=== PATIENT | female | born 1980 | race Caucasian/White ===

== ENCOUNTER → 2016-11-05 | Outpatient (CLI) | payer OTHER ==
[2016-11-05 11:33] VITALS: BP 110/75; PULSE 70; RESP 18; TEMP 98; BMI 45.8
[2016-11-05 12:33] LABS: CH 31.9; CHCM 35.2; HDW 2.68; HGB 14.8 gm/dL (11.4-16.0); MCH 31.3 pg (25.0-35.0); MCHC 34.4 g/dL (31.0-37.0); Mean Platelet Volume 7.1; RBC 4.73 m/uL (3.80-5.40); WBC 5.8 k/uL (3.8-10.6)
[2016-11-05 12:43] LABS: Partial Thromboplastin Time 26.6 sec (22.0-30.0); Prothrombin Time 10.4 sec (9.0-12.0)
[2016-11-05 12:48] LABS: Hemoglobin A1C 5.1 % (4.2-6.1)
[2016-11-05 13:02] LABS: ALT 40 U/L (9-52); AST 19 U/L (14-36); Alkaline Phosphatase 59 U/L (38-126); Anion Gap 9 mmol/L; Blood Urea Nitrogen 8 mg/dL (7-17); Calcium 9.2 mg/dL (8.4-10.2); Carbon Dioxide 27 mmol/L (22-30); Chloride 105 mmol/L (98-107); Cholesterol 152 mg/dL (<200); Glucose 79 mg/dL (74-99); HDL Cholesterol 42 mg/dL (40-60); Iron 93 ug/dL (37-170); Non-African American GFR(MDRD) >60 (>60 ml/min/1.73 sqM); Phosphorous 3.4 mg/dL (2.5-4.5); Potassium 4.3 mmol/L (3.5-5.1); Sodium 141 mmol/L (137-145); Total Bilirubin 0.8 mg/dL (0.2-1.3); Total Protein 6.3 g/dL (6.3-8.2); Triglycerides 104 mg/dL (<150)
[2016-11-05 13:15] LABS: % Iron Saturation 30.5 % (20-50); Prealbumin 19 mg/dL (18-36); Total Iron Binding Capacity 305 ug/dL (265-497)
[2016-11-05 14:06] LABS: Vitamin B12 362 pg/mL (239-931)
[2016-11-07 22:19] LABS: Selenium 83 mcg/L (63-160)
--- NOTE | 2016-11-15 14:40 | P.PN ---
Progress Note - Text DATE OF SERVICE: 11/05/2016 CHIEF COMPLAINT: Followup gastric bypass. HISTORY OF PRESENT ILLNESS: Karen Yoo is a 35-year-old female who is status post Deepika-en-Y gastric bypass as of April 13, 2016. She now presents almost 6 months out. Her highest weight was 392 pounds for her 5-foot 6-inch frame. Her ideal body weight is 154 pounds. Today she comes in weighing 283 pounds. She has already lost 109 pounds. Percent excess weight loss is 46%. Body mass index has been reduced from 63.4 to 45.8. Body mass index points are down by 18. She is still 129 pounds overweight. No reports of diabetes, as now this is resolved. She denies any gastroesophageal reflux disease. Initially she did have gastrojejunal ulcers with a recurrent stricture which has spontaneously now resolved. She denies any dysphagia. Her personal goal is to lose more weight. She does have a history of panniculitis, including requiring prescription treatment for her pannus. She is maintaining at least 60 grams of protein. Now she presents for further evaluation and management. PAST MEDICAL HISTORY: 1. Super morbid obesity. 2. Gastroesophageal reflux disease. 3. Obstructive sleep apnea. 4. Diabetes type 2. 5. Osteoarthritis of the left ankle secondary to morbid obesity. 6. Osteoarthritis of the lower back. 7. Depression. 8. Asthma. PAST SURGICAL HISTORY: 1. Adenoidectomy. 2. Tonsillectomy. 3. C-sections. 4. Upper endoscopy. 5. Status post Deepika-en-Y gastric bypass. 6. Upper endoscopy with balloon dilatation. MEDICATIONS: 1. Nexplanon. 2. Tylenol. 3. Omeprazole. 4. Vitamin A. 5. Multivitamin. ALLERGIES: 1. CLINDAMYCIN. 2. LEVOFLOXACIN. 3. PENICILLIN. 4. PAPER TAPE. SOCIAL HISTORY: Active tobacco user. FAMILY HISTORY: Pertinent for no gallbladder disease. No reports of blood clots, food allergies, Crohn's or ulcerative colitis in her family. REVIEW OF SYSTEMS: CONSTITUTIONAL: Highest weight was 392 pounds for her 5-foot 6-inch frame. Her ideal body weight is 154 pounds. Initial body mass index was 63.4. Present body mass index is down to 45.8. She has actually lost 109 pounds in the past 6+ months. Percent excess weight loss is 46%. ENDOCRINE: Resolved diabetes, type 2. No reports of thyroid disorders at present. GASTROINTESTINAL: No reports of dumping syndrome. Gastroesophageal reflux disease has now resolved. She denies any dysphagia to foods. PSYCH: History of depression, now resolved. She has been discontinued over Cymbalta. RESPIRATORY: History of asthma. She has completed evaluation for obstructive sleep apnea. HEENT: No troubles with vision or hearing. CARDIOVASCULAR: No reports of chest pain or heart attack. MUSCULOSKELETAL: Has osteoarthritis of the lower back including the left ankle. NEURO: No reports of stroke or seizure disorder. She is currently being evaluated for multiple sclerosis, however. HEMATOLOGIC: No reports of DVTs or thalassemia. PHYSICAL EXAM: VITAL SIGNS: 98.0, 70, 18, 110/75, 5 feet 6 inches, 283 pounds. Body mass index 45.8. ABDOMEN: Soft, nontender. No palpable incisional hernias. MUSCULOSKELETAL: No clubbing, cyanosis or edema. GENERAL: Well-developed female no acute distress. HEENT: No scleral icterus. Extraocular movements grossly intact. Moist buccal mucosa. NECK: Supple without lymphadenopathy. CHEST: Nonlabored respirations with equal bilateral excursions. CARDIOVASCULAR: Regular rate and rhythm. NEURO: No focal or lateralizing signs. Cranial nerves 2 through 12 grossly within normal limits. PSYCH: Appropriate affect. Alert and oriented to person, place, and time. LABS: Previous bariatric metabolic panel was reviewed with current pending at this time. ASSESSMENT: 1. Morbid obesity due to excess calories. 2. Body mass index reduced from 63.4 to 45.8. 3. Status post Deepika-en-Y gastric bypass. 4. Diabetes, type 2, resolved. 5. Panniculitis. 6. Gastroesophageal reflux disease, resolved. 7. Gastrojejunal stricture, resolved. 8. Dietary surveillance and counseling. 9. Gastroesophageal reflux disease, resolved. 10. Hypertensive heart disease, resolved. 11. Obstructive sleep apnea, resolved. 12. Osteoarthritis of the lower back secondary to morbid obesity, improved. 13. Osteoarthritis of the left ankle secondary to morbid obesity, improved. 14. Depression without psychosis. PLAN: 1. Recommend bariatric metabolic panel. 2. She does have history of panniculitis, for which nystatin powder has been written on her behalf. 3. She has done extremely well, already achieving almost 50% excess weight loss in 6 months. Dietary surveillance and counseling were described, whereby goal protein intake of over 75 grams daily was advised. 4. Upon her previous chemistries she had vitamin A deficiency, including suppressed TSH level, questionable for hyperthyroidism. Will re-evaluate her labs. 5. Recommend followup in approximately 4 weeks. ADDENDUM: Bariatric metabolic panel was reviewed, demonstrating no deficiencies or abnormalities.
== END | disposition home or self-care (01) ==
LOC: BARWHC3 10:34
PROVIDERS: ATTEND Surgery Plastic and Reconstructive Surgery
DX: E66.01 Morbid (severe) obesity due to excess calories (principal); E21.1 Secondary hyperparathyroidism, not elsewhere classified; E89.1 Postprocedural hypoinsulinemia; E50.8 Other manifestations of vitamin A deficiency; E44.0 Moderate protein-calorie malnutrition; E55.9 Vitamin D deficiency, unspecified; K74.1 Hepatic sclerosis; N19 Unspecified kidney failure; F32.9 Major depressive disorder, single episode, unspecified; K50.90 Crohn's disease, unspecified, without complications; M79.3 Panniculitis, unspecified; M47.9 Spondylosis, unspecified; M19.072 Primary osteoarthritis, left ankle and foot; F17.200 Nicotine dependence, unspecified, uncomplicated; Z71.3 Dietary counseling and surveillance; Z88.1 Allergy status to other antibiotic agents; Z88.0 Allergy status to penicillin; Z68.42 Body mass index [BMI] 45.0-49.9, adult; Z51.89 Encounter for other specified aftercare; Z98.84 Bariatric surgery status; Z91.048 Other nonmedicinal substance allergy status; Z79.899 Other long term (current) drug therapy
CPT/HCPCS: 84255; 84134; 84425; 80061; 80053; 82607; 82728; 83036; 82525; 82746; 83540; 83550; 83735; 84100; 84443; 84590; 84630; 85027; 85610; 85730; 82306; 83970; 97803; G0463; 99211

== ENCOUNTER 2017-01-26 02:51 | Inpatient (IN) | payer OTHER ==
--- NOTE | 2017-01-26 02:55 | ED ---
General Adult HPI - General Stated complaint: Adominal Pain Time Seen by Provider: 01/26/17 02:51 Source: RN notes reviewed - History of Present Illness Initial comments: This is a 36-year-old female who presents to the emergency department from [facility]. Patient had gastric bypass surgery last April. Patient states last night about 5:00 she started having some epigastric abdominal pain is started having dry heaves. Patient went [facility] where they determined she had small bowel instruction. ER contacted Dr. Tim Dumont told the emergency department to transfer the patient to our ER. Patient at this point time is gotten pain medicine and nausea medicine and she is not having any nausea and she states the pain is under control. Patient denies any recent fevers or chills. Patient denies any previous history of small bowel obstruction. Patient denies any chest pain patient denies shortness of breath or difficulty breathing. - Related Data Home Medications Medication Instructions Recorded Confirmed Ergocalciferol (Vitamin D2) 50,000 unit PO WEEKLY 01/26/17 01/26/17 [Vitamin D2] Multivitamins, Thera [Multivitamin 1 tab PO DAILY 01/26/17 01/26/17 (formulary)] Vitamin B Complex 1 each PO DAILY 01/26/17 01/26/17 Previous Rx's Medication Instructions Recorded Vitamin A 8,000 unit PO DAILY #30 capsule 06/24/16 Allergies Allergy/AdvReac Type Severity Reaction Status Date / Time clindamycin Allergy Rash/Hives/ Verified 01/26/17 02:58 RED FACE levofloxacin [From Levaquin] Allergy Anaphylaxis Verified 01/26/17 02:58 Penicillins Allergy Anaphylaxis Verified 01/26/17 02:58 paper tape Allergy rash and Uncoded 01/26/17 02:58 tears skin Review of Systems ROS Statement: Those systems with pertinent positive or pertinent negative responses have been documented in the HPI. ROS Other: All systems not noted in ROS Statement are negative. Past Medical History Past Medical History: Asthma, GERD/Reflux, Sleep Apnea/CPAP/BIPAP Additional Past Medical History / Comment(s): CURRENT: COMPLICATIONS POST GASTRIC BYPASS, UNABLE TO KEEP FOOD DOWN. Possible MS, pain when eating History of Any Multi-Drug Resistant Organisms: None Reported Past Surgical History: Adenoidectomy, Bariatric Surgery, Section, Tonsillectomy, Ventriculoperitoneal Shunt Additional Past Surgical History / Comment(s): 04/13/16: MAYLIN-EN-Y GASTRIC BYPASS. , EGD 06/10/16 Past Anesthesia/Blood Transfusion Reactions: No Reported Reaction Additional Past Anesthesia/Blood Transfusion Reaction / Comment(s): no hx blood transfusion Past Psychological History: Anxiety, Depression Smoking Status: Never smoker Past Alcohol Use History: Rare Additional Past Alcohol Use History / Comment(s): QUIT SMOKING 07/2015 Past Drug Use History: Marijuana Additional Drug Use History / Comment(s): SMOKES COUPLE TIMES A WEEK, INSTRUCTED NOT TO USE 24 HRS PRIOR TO PROCEDURE - Past Family History Father History Unknown: Yes Family Medical History: No Reported History Mother Family Medical History: No Reported History General Exam - General Exam Comments Initial Comments: GENERAL: Patient is well-developed and well-nourished. Patient is nontoxic and well- hydrated and is in mild distress. ENT: Neck is soft and supple. No significant lymphadenopathy is noted. Oropharynx is clear. Moist mucous membranes. Neck has full range of motion without eliciting any pain. EYES: The sclera were anicteric and conjunctiva were pink and moist. Extraocular movements were intact and pupils were equal round and reactive to light. Eyelids were unremarkable. PULMONARY: Unlabored respirations. Good breath sounds bilaterally. No audible rales rhonchi or wheezing was noted. CARDIOVASCULAR: There is a regular rate and rhythm without any murmurs gallops or rubs. ABDOMEN: Mild epigastric tenderness. No palpable organomegaly was noted. There is no palpable pulsatile mass. SKIN: Skin is clear with no lesions or rashes and otherwise unremarkable. NEUROLOGIC: Patient is alert and oriented x3. Cranial nerves II through XII are grossly intact. Motor and sensory are also intact. Normal speech, volume and content. Symmetrical smile. MUSCULOSKELETAL: Normal extremities with adequate strength and full range of motion. LYMPHATICS: No significant lymphadenopathy is noted PSYCHIATRIC: Normal psychiatric evaluation. Course Vital Signs 01/26/17 02:53 Temperature 98.4 F Pulse Rate 62 Respiratory 20 Rate Blood Pressure 133/58 O2 Sat by Pulse 97 Oximetry Medical Decision Making - Medical Decision Making I spoke with Dr. Kaufman he stated that I should admit the patient to Dr. Rodolfo pavon and he would see the patient in the morning I spoke with Dr. Racheal Reynolds Jason she accepted the patient and and I wrote admitting orders. - Lab Data Result diagrams: 01/26/17 03:16 Lab Results 01/26/17 Range/Units 03:16 WBC 8.6 (3.8-10.6) k/uL RBC 4.44 (3.80-5.40) m/uL Hgb 14.0 (11.4-16.0) gm/dL Hct 41.4 (34.0-46.0) % MCV 93.4 (80.0-100.0) fL MCH 31.5 (25.0-35.0) pg MCHC 33.8 (31.0-37.0) g/dL RDW 13.2 (11.5-15.5) % Plt Count 212 (150-450) k/uL Neutrophils % 78 % Lymphocytes % 16 % Monocytes % 4 % Eosinophils % 1 % Basophils % 0 % Neutrophils # 6.6 (1.3-7.7) k/uL Lymphocytes # 1.4 (1.0-4.8) k/uL Monocytes # 0.3 (0-1.0) k/uL Eosinophils # 0.1 (0-0.7) k/uL Basophils # 0.0 (0-0.2) k/uL Disposition Clinical Impression: Small bowel obstruction Disposition: ADMITTED IP TO THIS HOSP Referrals: Jose Buchanan MD [Primary Care Provider] - 1-2 days Time of Disposition: 03:10
[2017-01-26] MEDS ORDERED: SODIUM CHLORIDE 0.9% 1,000 ML IV ONE (03:10)
[2017-01-26] MEDS ORDERED: ONDANSETRON 4 MG/2 ML VIAL IVP PRN (03:14)
[2017-01-26 03:32] LABS: Basophils % (A) 0 %; CH 32.2; CHCM 34.6; Eosinophils # (A) 0.1 k/uL (0-0.7); Eosinophils % (A) 1 %; HCT 41.4 % (34.0-46.0); HDW 2.54; Luc % (Auto) 1; Lymphocytes # (A) 1.4 k/uL (1.0-4.8); Lymphocytes % (A) 16 %; MCH 31.5 pg (25.0-35.0); MCHC 33.8 g/dL (31.0-37.0); MCV 93.4 fL (80.0-100.0); Mean Platelet Volume 6.9; Monocytes # (A) 0.3 k/uL (0-1.0); Monocytes % (A) 4 %; Neutrophils # (A) 6.6 k/uL (1.3-7.7); Neutrophils % (A) 78 %; RBC 4.44 m/uL (3.80-5.40); RDW 13.2 % (11.5-15.5); WBC 8.6 k/uL (3.8-10.6); WBC (Perox) 8.73
--- NOTE | 2017-01-26 04:21 | XR ---
EXAM: XR Abdomen, 1 View. CLINICAL HISTORY: Reason: Pain TECHNIQUE: Frontal supine view of the abdomen/pelvis. COMPARISON: No relevant prior studies available. FINDINGS: Gastrointestinal tract: Distended air-filled bowel loop in left upper abdomen with air-fluid levels. Bones/joints: No acute fracture. Other findings: No evidence of free air. IMPRESSION: Distended air-filled bowel loop in left upper abdomen with air-fluid levels. Differential considerations include enteritis, obstruction, or ileus.
[2017-01-26] MEDS: HYDROmorphone 1 MG/ML 1 ML SYRINGE IVP PRN ×4 (05:08→20:30)
[2017-01-26 10:21] VITALS: BMI 42.6
--- NOTE | 2017-01-26 11:35 | XR ---
EXAMINATION TYPE: XR abdomen 1V DATE OF EXAM: 01/26/2017 11:00 AM COMPARISON: 01/26/2017 HISTORY: Severe pain TECHNIQUE: One view abdominal series FINDINGS: The osseous structures are intact. The bowel gas pattern is nonspecific. Few prominent small bowel l oops are seen. Slight curvature of the spine with mild degenerative changes seen. Hypertrophic change of the acetabulum noted. IMPRESSION: 1. Nonspecific abdomen. There is interval reduction in the degree of dilation of the bowel loops sug gestive of significant improvement from the previous exam. There is some residual small bowel dilatio n and air-fluid level within the mid and left abdomen. Partial obstruction remains within the differe ntial diagnosis.
--- NOTE | 2017-01-26 12:22 | P.GSHP ---
History of Present Illness H&P Date: 01/26/17 Chief Complaint: Nausea,vomiting and abdominal pain Patient is a 40-year-old female who had a gastric bypass for morbid obesity with diabetes mellitus approximately 9 months ago. Patient distended with sudden onset of severe mid abdominal pain associated with retching dry heaving and nausea vomiting. She was not passing a lot of gas. She was initially seen at [facility] and transferred to [facility]. Her pain was epigastric radiating towards the back. There was moderate to severe improved with pain medication and made worse by her heaving and vomiting. She's not had a bowel movement in 24 hours. Since she's been initially been passing more gas. Her pain is improved. She's been ambulating well. Without any problems. - Constitutional Constitutional: Reports anorexia, Reports poor appetite - EENT Eyes: denies blurred vision, denies pain Ears, nose, mouth and throat: Denies headache, Denies sore throat - Cardiovascular Cardiovascular: Denies chest pain, Denies shortness of breath - Respiratory Respiratory: Denies cough, Denies 7 - Gastrointestinal Gastrointestinal: Reports as per HPI - Genitourinary (Female) Genitourinary: Denies dysuria, Denies hematuria - Musculoskeletal Musculoskeletal: Denies myalgias - Integumentary Integumentary: Denies pruritus, Denies rash - Neurological Neurological: Denies numbness, Denies weakness - Psychiatric Psychiatric: Denies anxiety, Denies depression Past Medical History Past Medical History: Asthma, GERD/Reflux, Sleep Apnea/CPAP/BIPAP Additional Past Medical History / Comment(s): CURRENT: COMPLICATIONS POST GASTRIC BYPASS, UNABLE TO KEEP FOOD DOWN. Possible MS, pain when eating History of Any Multi-Drug Resistant Organisms: None Reported Past Surgical History: Adenoidectomy, Bariatric Surgery, Section, Tonsillectomy, Ventriculoperitoneal Shunt Additional Past Surgical History / Comment(s): 04/13/16: MAYLIN-EN-Y GASTRIC BYPASS. , EGD 06/10/16 Past Anesthesia/Blood Transfusion Reactions: No Reported Reaction Additional Past Anesthesia/Blood Transfusion Reaction / Comment(s): no hx blood transfusion Past Psychological History: Anxiety, Depression Smoking Status: Never smoker Past Alcohol Use History: Rare Additional Past Alcohol Use History / Comment(s): QUIT SMOKING 07/2015 Past Drug Use History: Marijuana Additional Drug Use History / Comment(s): SMOKES COUPLE TIMES A WEEK, INSTRUCTED NOT TO USE 24 HRS PRIOR TO PROCEDURE - Past Family History Father History Unknown: Yes Family Medical History: No Reported History Mother Family Medical History: No Reported History Medications and Allergies Home Medications Medication Instructions Recorded Confirmed Type Ergocalciferol (Vitamin D2) 50,000 unit PO MO 01/26/17 01/26/17 History [Vitamin D2] Multivitamins, Thera [Multivitamin 1 tab PO DAILY 01/26/17 01/26/17 History (formulary)] Thiamine [Vitamin B-1] 100 mg PO DAILY 01/26/17 01/26/17 History Allergies Allergy/AdvReac Type Severity Reaction Status Date / Time levofloxacin [From Levaquin] Allergy Severe Anaphylaxis Verified 01/26/17 08:02 clindamycin Allergy Rash/Hives/ Verified 01/26/17 08:02 RED FACE Penicillins Allergy Anaphylaxis Verified 01/26/17 08:02 paper tape Allergy rash and Uncoded 01/26/17 02:58 tears skin Surgical - Exam Vital Signs Temp Pulse Resp BP Pulse Ox 98.4 F 62 20 133/58 97 01/26/17 02:53 01/26/17 02:53 01/26/17 02:53 01/26/17 02:53 01/26/17 02:53 - General well developed, well nourished, no pain - Eyes PERRL, normal ocular movement, no pale, no icteric, no deviation - ENT no hearing loss, no congestion - Neck no masses, trachea midline - Respiratory normal expansion, normal respiratory effort - Cardiovascular Rhythm: regular - Abdomen She was initially examined at 8:30 this morning. At that time. She was complaining of abdominal tenderness primarily epigastric without any guarding or rebound. Interval exam done at 12 known reveals a soft abdomen without any guarding rebound or tenderness. Mildly distended without any mass or organomegaly. Scars from previous surgery are seen. Bowel sounds are hypoactive. - Integumentary no rash, no abnormal pigmentation Results - Labs 01/26/17 03:16 - Imaging Abdominal x-ray: report reviewed, image reviewed (She was seen and examined. The computed tomography scan revealed dilated small bowel with fecal equalization probable obstruction at 2 points with distal and proximal collapse of the bowel. Initial abdominal x-ray showed dilated loops of bowel consistent with bowel obstruction. The second abdominal x-ray revealed resolution with decreased number of dilated loops of bowel) CT scan - abdomen: report reviewed, image reviewed Assessment and Plan (1) Small bowel obstruction Status: Acute (2) Morbid obesity Status: Acute Plan: Patient is a 36-year-old female with a history of gastric bypass for previous history of diabetes mellitus with complications including's for sleep apnea. She is on well with 130 pound weight loss. She presented with sudden onset of severe abdominal pain with bowel obstruction and was admitted to the floor. She has not had an NG tube. Since her admission her nausea and vomiting have reduced as well as abdominal pain. Clinically abdominal exam is improved which was tender initially but is not as tender. His white count has remained normal without any left shift. Plasma lactate is normal. Serial abdominal x-ray shows significant improvement. Due to the continuing improvement of the patient at this time I elected to manage this patient conservatively. She is okay to have ice chips per Dr. Adams. She will be evaluated by Dr. Adams later tonight. No surgical intervention is planned at this point.
[2017-01-26] MEDS ORDERED: RX INFO: IV CONTRAST WAS GIVEN 1 EACH MISC MISCELLANE PRN (18:14)
[2017-01-26] MEDS ORDERED: IOHEXOL 350 MG/ML 25 ML BOTTLE (ORAL USE) PO PRN (18:14)
--- NOTE | 2017-01-26 18:22 | P.PN ---
Subjective Principal diagnosis: Bowel obstruction Patient is a [id number]-year-old female well-known to me who was over 9 months out from Deepika-en-Y gastric bypass. She reports epigastric and periumbilical pain. Abdominal x-rays had shown moderate improvement of her initial bowel obstruction. She is passing flatus. She reports mild abdominal soreness however moderate improvement of her abdominal pain since admission. She is requesting liquids. She denies any vomiting at this time. Objective - Vital Signs Vital signs: Vital Signs Temp 97.3 F L 01/26/17 14:15 Pulse 53 L 01/26/17 14:15 Resp 16 01/26/17 14:15 BP 95/55 01/26/17 14:15 Pulse Ox 98 01/26/17 14:15 Intake & Output 01/25/17 01/26/17 01/26/17 18:59 06:59 18:59 Intake Total 100 800 Balance 100 800 Weight 119.748 kg Intake: IV 100 800 Sodium Chloride 0.9% 1, 100 800 000 ml @ 100 mls/hr IV . Q10H ONE Rx#:[id number] Other: Voiding Method Toilet - Exam GENERAL: Well developed and in no acute distress. Pleasant. HEENT: No sclera icterus. Extraocular movements grossly intact. Moist buccal mucosa. Head is atraumatic, normocephalic. Hears conversational speech. No nasal drainage. NECK: Supple without lymphadenopathy. No JV distention. CHEST: Non-labored respirations and equal bilateral excursions. CARDIOVASCULAR: Regular rate and rhythm. Palpable 2+ radial pulses. ABDOMEN: Well-healed transverse incisions. No palpable large incisional hernias. No peritonitis. Nondistended. Minimal tenderness to deep palpation along the epigastrium. MUSCULOSKELETAL: No clubbing, cyanosis or edema. NEUROLOGIC: No focal or lateralizing signs. PSYCH: Appropriate affect. Alert and oriented to person, place and time. - Labs CBC & Chem 7: 01/26/17 03:16 Labs: Abnormal Lab Results - Last 24 Hours (Table) 01/26/17 Range/Units 09:39 Plasma Lactic Acid Gianni 0.6 L (0.7-2.0) mmol/L Assessment and Plan (1) Bariatric surgery status Status: Acute (2) Small bowel obstruction Status: Acute (3) Morbid obesity Status: Acute (4) Epigastric abdominal pain Status: Acute Plan: 1. She had initial CT done at [facility] however without contrast and very limited study. Recommend CT of the abdomen and pelvis with both oral and IV contrast to elucidate intussusception versus internal hernia versus volvulus. 2. She has clinically improved however a diagnostic laparoscopy has not been completely excluded. 3. Continue with IV fluid hydration. 4. Liquid diet at this time following computed tomography scan. 5. Agree with full inpatient hospitalization given severity of presentation. 6. Repeat full chemistries including magnesium, phosphorus, lactic acid.
--- NOTE | 2017-01-26 19:21 | CT ---
EXAMINATION TYPE: CT abdomen pelvis w con DATE OF EXAM: 01/26/2017 7:14 PM COMPARISON: 01/26/2017 from an outside institution. HISTORY: Mid abdominal pain. CT DLP: 1957.70 mGycm CONTRAST: CT scan of the abdomen and pelvis is performed with Oral Contrast and with IV Contrast, patient injec clarissa with 100 mL of Omnipaque 300. FINDINGS: LUNG BASES-: No visible nodule. No infiltrate. LIVER/GB: No calcified gallstones. No space occupying hepatic lesion. Biliary tree is of normal ca liber. There is mild hepatic steatosis. PANCREAS: No inflammation. No distinct mass. SPLEEN: No splenic enlargement. No lesion seen. ADRENALS: No nodule. No thickening. KIDNEYS/BLADDER: No hydronephrosis. No nephrolithiasis. No disctinct renal mass. Urinary bladder g rossly unremarkable. BOWEL: There is evidence of gastric bypass procedure. No evidence for obstruction or leak. No abnorma l collections identified. Several the proximal small bowel loops demonstrate mild wall thickening whi ch may reflect enteritis. Normal appendix. Normal bowel caliber. GENITAL ORGANS: The uterus and ovaries are unremarkable. Free fluid is seen within the cul-de-sac. LYMPH NODES: No greater than 1cm abdominal or pelvic lymph nodes are appreciated. AORTA: No significant abnormality. OSSEOUS STRUCTURES: No significant abnormality is seen. OTHER: No significant additional abnormality is seen. IMPRESSION: 1. Postoperative changes of gastric bypass procedure without evidence for leak or obstruction. 2. Proximal jejunal loops demonstrate mild wall thickening which may reflect enteritis. 3. Fatty liver. 4. Free fluid within the cul-de-sac.
--- NOTE | 2017-01-26 19:44 | P.PN ---
Progress Note - Text CT of the abdomen pelvis reviewed. Findings are consistent with gastroenteritis. No evidence of bowel obstruction identified.
[2017-01-27] MEDS: HYDROmorphone 1 MG/ML 1 ML SYRINGE IVP PRN ×3 (06:08→20:45)
[2017-01-27 08:33] LABS: Basophils % (A) 1 %; CH 32.1; CHCM 34.6; Eosinophils # (A) 0.1 k/uL (0-0.7); Eosinophils % (A) 2 %; HDW 2.67; HGB 13.5 gm/dL (11.4-16.0); Luc % (Auto) 2; Lymphocytes # (A) 1.7 k/uL (1.0-4.8); Lymphocytes % (A) 35 %; MCH 33.2 pg (25.0-35.0); MCHC 35.6 g/dL (31.0-37.0); MCV 93.3 fL (80.0-100.0); Mean Platelet Volume 7.4; Monocytes # (A) 0.3 k/uL (0-1.0); Monocytes % (A) 6 %; Neutrophils # (A) 2.5 k/uL (1.3-7.7); Neutrophils % (A) 54 %; RBC 4.07 m/uL (3.80-5.40); WBC 4.7 k/uL (3.8-10.6); WBC (Perox) 4.99
[2017-01-27 08:40] LABS: ALT 25 U/L (9-52); AST 11 U/L (14-36); Alkaline Phosphatase 50 U/L (38-126); Anion Gap 6 mmol/L; Blood Urea Nitrogen 6 mg/dL (7-17); Calcium 8.8 mg/dL (8.4-10.2); Carbon Dioxide 27 mmol/L (22-30); Chloride 107 mmol/L (98-107); Glucose 94 mg/dL (74-99); Magnesium 1.9 mg/dL (1.6-2.3); Non-African American GFR(MDRD) >60 (>60 ml/min/1.73 sqM); Phosphorous 4.1 mg/dL (2.5-4.5); Potassium 4.1 mmol/L (3.5-5.1); Sodium 140 mmol/L (137-145); Total Bilirubin 0.8 mg/dL (0.2-1.3); Total Protein 5.4 g/dL (6.3-8.2)
[2017-01-27] MEDS ORDERED: NALOXONE 0.4 MG/ML 1 ML VIAL IV PRN (19:20)
--- NOTE | 2017-01-27 19:20 | P.PN ---
Subjective Principal diagnosis: Bowel obstruction Patient is a [id number]-year-old female who presented with acute onset epigastric abdominal pain. Abdominal x-ray including CT of abdomen pelvis was negative for acute obstruction however today she still reports persistent abdominal pain. She is passing flatus. Her mother is at bedside. She says the pain comes in waves. Objective - Vital Signs Vital signs: Vital Signs Temp 98.6 F 01/27/17 14:04 Pulse 60 01/27/17 14:04 Resp 16 01/27/17 14:04 BP 138/86 01/27/17 14:04 Pulse Ox 97 01/27/17 14:04 Intake & Output 01/27/17 01/27/17 01/28/17 06:59 18:59 06:59 Intake Total 1200 Balance 1200 Intake: IV 1200 Sodium Chloride 0.9% 1, 1200 000 ml @ 100 mls/hr IV . Q10H ONE Rx#:[id number] Other: Voiding Method Toilet # Voids 2 - Exam GENERAL: Well developed and in no acute distress. Pleasant. HEENT: No sclera icterus. Extraocular movements grossly intact. Moist buccal mucosa. Head is atraumatic, normocephalic. Hears conversational speech. No nasal drainage. NECK: Supple without lymphadenopathy. No JV distention. CHEST: Non-labored respirations and equal bilateral excursions. CARDIOVASCULAR: Regular rate and rhythm. Palpable 2+ radial pulses. ABDOMEN: Well-healed transverse incisions. No palpable large incisional hernias. No peritonitis. Tenderness along the epigastrium. MUSCULOSKELETAL: No clubbing, cyanosis or edema. NEUROLOGIC: No focal or lateralizing signs. PSYCH: Appropriate affect. Alert and oriented to person, place and time. - Labs CBC & Chem 7: 01/27/17 08:12 01/27/17 08:12 Labs: Abnormal Lab Results - Last 24 Hours (Table) 01/27/17 Range/Units 08:12 BUN 6 L (7-17) mg/dL AST 11 L (14-36) U/L Total Protein 5.4 L (6.3-8.2) g/dL Albumin 3.0 L (3.5-5.0) g/dL Assessment and Plan (1) Bariatric surgery status Status: Acute (2) Small bowel obstruction Status: Acute (3) Morbid obesity Status: Acute (4) Epigastric abdominal pain Status: Acute Plan: 1. Although her computed tomography scan imaging had showed improvement, her abdominal pain has now become worse. With her history of a gastric bypass, an internal hernia, volvulus, intussusception cannot be excluded. I discussed benefits and risks of diagnostic laparoscopy which she is agreed to proceed. 2. DVT prophylaxis. 3. Nothing by mouth after midnight.
[2017-01-27] MEDS: SODIUM CHLORIDE 0.9% 1,000 ML IV SCH (20:50)
[2017-01-28] MEDS: HYDROmorphone 1 MG/ML 1 ML SYRINGE IVP PRN ×5 (00:34→23:25)
[2017-01-28] MEDS: SODIUM CHLORIDE 0.9% 1,000 ML IV SCH ×2 (04:22→20:31)
[2017-01-28] MEDS: ENOXAPARIN 40 MG/0.4 ML SYRINGE SQ SCH ×2 (08:23→13:30)
[2017-01-28] MEDS: PANTOPRAZOLE 40 MG/10 ML VIAL IV SCH (09:02)
[2017-01-28 11:37] LABS: % Iron Saturation 13.4 % (20-50)
[2017-01-28] MEDS ORDERED: VANCOMYCIN 1,500 MG in SODIUM CHLORIDE 0.9% 250 ML IVPB ONE (13:00)
[2017-01-28] MEDS ORDERED: IV FLUID CONTINUATION 700 ML IV ONE (13:08)
[2017-01-28 13:10] LABS: Hemoglobin A1C 5.2 % (4.2-6.1)
[2017-01-28] MEDS ORDERED: ONDANSETRON 4 MG/2 ML VIAL IVP ONE (13:20)
[2017-01-28] MEDS ORDERED: DEXAMETHASONE SOD PHOSPHATE 10 MG/ML 1 ML VIAL IV ONE (13:21)
[2017-01-28] MEDS ORDERED: GLYCOPYRROLATE 0.2 MG/ML 2 ML VIAL ONE (14:15)
[2017-01-28] MEDS ORDERED: PROPOFOL 10 MG/ML 20 ML VIAL IV ONE (14:15)
[2017-01-28] MEDS ORDERED: VECURONIUM 10 MG VIAL IV ONE (14:15)
[2017-01-28] MEDS ORDERED: fentaNYL (PF) 50 MCG/ML 2 ML AMP ONE (14:15)
[2017-01-28] MEDS ORDERED: HYDROmorphone (PF) 1 MG/ML ONE (14:15)
[2017-01-28] MEDS ORDERED: LIDOCAINE 1% INJ 10MG/ML (20 ML MDV) ONE (14:15)
[2017-01-28] MEDS ORDERED: MIDAZOLAM 2 MG/2 ML VIAL ONE (14:15)
[2017-01-28] MEDS ORDERED: SUCCINYLCHOLINE CHLORIDE VIAL 200 MG/10 ML VIAL IV ONE (14:15)
[2017-01-28] MEDS ORDERED: NEOSTIGMINE 1 MG/ML 10 ML VIAL ONE (14:15)
[2017-01-28] MEDS ORDERED: ePHEDrine 50 MG/ML 1 ML AMP ONE (14:15)
[2017-01-28] MEDS ORDERED: BUPIVACAIN-EPI 0.25%-1:200,000 30 ML VIAL SQ ONE (14:57)
[2017-01-28] MEDS ORDERED: LACTATED RINGERS 1,000 ML IV ONE (14:57)
[2017-01-28] MEDS ORDERED: HYDROmorphone 1 MG/ML 1 ML SYRINGE IVP ONE ×2 (16:15→16:21)
--- NOTE | 2017-01-28 16:15 | P.PCN ---
Date of Procedure: 01/28/17 Preoperative Diagnosis: Small bowel obstruction, history of epigastric abdominal pain, history of gastric bypass Postoperative Diagnosis: Same, adhesive band disease along the epigastrium causing small bowel volvulus along adhesive band Procedure(s) Performed: Laparoscopic lysis of adhesions over 1 hour, closure of the jejunojejunostomy mesenteric defect Anesthesia: BRIAN, local Surgeon: Dixie Chew Estimated Blood Loss (ml): 5 Pathology: none sent Condition: stable Disposition: floor Operative Findings: Adhesive band along epigastrium to the abdominal wall involving her liliam limb and common channel. No small bowel ischemia.
[2017-01-28] MEDS ORDERED: MEPERIDINE 50 MG/ML SYRINGE IVP ONE ×2 (16:26→16:32)
[2017-01-28 16:40] VITALS: RESP 16
[2017-01-28] MEDS: SODIUM FERRIC GLUCONAT-SUCROSE 125 MG in SODIUM CHLORIDE 0.9% 100 ML IVPB SCH (17:26)
--- NOTE | 2017-01-28 18:12 | P.PN ---
Subjective Principal diagnosis: Bowel obstruction The patient is status post laparoscopic lysis of adhesions. Her epigastric abdominal pain is completely resolved. She's tolerating diet. She is receiving an iron infusion for iron deficiency anemia. Objective - Vital Signs Vital signs: Vital Signs Temp 97.3 F L 01/28/17 16:04 Pulse 71 01/28/17 16:34 Resp 16 01/28/17 16:34 BP 115/64 01/28/17 16:34 Pulse Ox 97 01/28/17 16:34 Intake & Output 01/27/17 01/28/17 01/28/17 18:59 06:59 18:59 Intake Total 1100 Output Total 205 Balance 895 Weight 119.748 kg Intake: IV 1100 Output: Urine 200 Estimated Blood Loss 5 Other: Voiding Method Toilet Toilet # Voids 2 - Exam GENERAL: Well developed and in no acute distress. Pleasant. HEENT: No sclera icterus. Extraocular movements grossly intact. Moist buccal mucosa. Head is atraumatic, normocephalic. Hears conversational speech. No nasal drainage. NECK: Supple without lymphadenopathy. No JV distention. CHEST: Non-labored respirations and equal bilateral excursions. CARDIOVASCULAR: Regular rate and rhythm. Palpable 2+ radial pulses. ABDOMEN: Incisions clean dry and intact. Dermabond intact. No signs of infection. MUSCULOSKELETAL: No clubbing, cyanosis or edema. NEUROLOGIC: No focal or lateralizing signs. PSYCH: Appropriate affect. Alert and oriented to person, place and time. - Labs CBC & Chem 7: 01/27/17 08:12 01/27/17 08:12 Labs: Abnormal Lab Results - Last 24 Hours (Table) 01/28/17 Range/Units 06:59 Iron 36 L (37-170) ug/dL % Saturation 13.4 L (20-50) % HDL Cholesterol 27 L (40-60) mg/dL Vitamin B12 215 L (239-931) pg/mL Assessment and Plan (1) Bariatric surgery status Status: Acute (2) Small bowel obstruction Status: Acute (3) Morbid obesity Status: Acute (4) Epigastric abdominal pain Status: Acute (5) Intestinal adhesions [bands] with obstruction (postprocedural) ( postinfection) Status: Acute (6) Iron deficiency anemia Status: Acute Plan: 1. She has done well postop. May be discharged home tomorrow. 2. Iron infusion 3. Follow up in the office in 3-5 days.
[2017-01-28] MEDS ORDERED: CYANOCOBALAMIN 1,000 MCG/ML 1 ML VIAL IM ONE (18:17)
--- NOTE | 2017-01-28 18:25 | P.DS ---
Providers Date of admission: 01/26/17 03:10 Expected date of discharge: 01/29/17 Attending physician: Vanessa Enciso Primary care physician: Jose Buchanan - Discharge Diagnosis(es) (1) Bariatric surgery status Current Visit: Yes Status: Acute (2) Small bowel obstruction Current Visit: Yes Status: Acute (3) Morbid obesity Current Visit: No Status: Acute (4) Epigastric abdominal pain Current Visit: Yes Status: Acute (5) Intestinal adhesions [bands] with obstruction (postprocedural) ( postinfection) Current Visit: Yes Status: Acute (6) Iron deficiency anemia Current Visit: Yes Status: Acute Hospital Course: The patient is a 36-year-old female who been transferred from [facility] to [facility] secondary to bowel obstruction. She has history of gastric bypass performed 9 months ago. She had CT of the abdomen and pelvis demonstrated no closed loop obstruction however her abdominal pain had progressed. She was taken to the operating room. Findings including intestinal adhesions and lysed. Postoperatively, her epigastric abdominal pain resolved. She was tolerating diet. Pertinent Studies: CT of the abdomen and pelvis demonstrating no free air. Procedures: Laparoscopic lysis of adhesions over 1 hour. Closure of jejunojejunostomy. Patient Condition at Discharge: Good Plan - Discharge Summary New Discharge Prescriptions: Cyanocobalamin [Vitamin B-12] 1,000 mcg PO DAILY@1200 #60 tablet Ferrous Sulfate [Feosol] 325 mg PO TID #90 tab Hydrocodone/Acetaminophen [[place] 5-325] 1 - 2 each PO Q6HR PRN #30 tab PRN Reason: Pain Discharge Medication List Vitamin A 8,000 unit PO DAILY #30 capsule 06/24/16 [Rx] Ergocalciferol (Vitamin D2) [Vitamin D2] 50,000 unit PO MO 01/26/17 [History] Multivitamins, Thera [Multivitamin (formulary)] 1 tab PO DAILY 01/26/17 [History ] Thiamine [Vitamin B-1] 100 mg PO DAILY 01/26/17 [History] Cyanocobalamin [Vitamin B-12] 1,000 mcg PO DAILY@1200 #60 tablet 01/28/17 [Rx] Ferrous Sulfate [Feosol] 325 mg PO TID #90 tab 01/28/17 [Rx] Hydrocodone/Acetaminophen [[place] 5-325] 1 - 2 each PO Q6HR PRN #30 tab 04/27/17 [Rx] Follow up Appointment(s)/Referral(s): Jose Buchanan MD [Primary Care Provider] - 1-2 days Dixie Chew MD [STAFF PHYSICIAN] - 02/02/17 (Please call to confirm time) Patient Instructions/Handouts: Bowel Obstruction (DC) Activity/Diet/Wound Care/Special Instructions: No lifting over 5 pounds in 2 weeks. May shower. No bath tub soaks. Discharge Disposition: HOME SELF-CARE
[2017-01-28] MEDS: HYDROcodone/APAP 5-325MG 1 EACH TAB PO PRN (22:50)
[2017-01-29] MEDS: SODIUM CHLORIDE 0.9% 1,000 ML IV SCH (03:24)
[2017-01-29] MEDS: HYDROcodone/APAP 5-325MG 1 EACH TAB PO PRN ×2 (04:22→09:09)
[2017-01-29 07:15] VITALS: BP 99/60; PULSE 54; TEMP 97.7
[2017-01-29] MEDS: ENOXAPARIN 40 MG/0.4 ML SYRINGE SQ SCH (07:19)
[2017-01-29] MEDS: PANTOPRAZOLE 40 MG/10 ML VIAL IV SCH (07:20)
[2017-01-29] MEDS: SODIUM FERRIC GLUCONAT-SUCROSE 125 MG in SODIUM CHLORIDE 0.9% 100 ML IVPB SCH (07:44)
--- NOTE | 2017-01-29 09:59 | OP ---
DATE OF SERVICE: 01/28/2017 SURGEON: MARYCRUZ LYONS MD RESIDENTIAL CHILD CARE COUNSELOR: NONE. PREOPERATIVE DIAGNOSES: 1. Acute onset epigastric abdominal pain. 2. History of small bowel obstruction. 3. Nausea and vomiting. 4. History of gastric bypass. 5. Morbid obesity due to excess calories. 6. Body mass index 42.6. 7. History of asthma. POSTOPERATIVE DIAGNOSES: 1. Acute onset epigastric abdominal pain. 2. History of small bowel obstruction. 3. Nausea and vomiting. 4. History of gastric bypass. 5. Morbid obesity due to excess calories. 6. Body mass index 42.6. 7. History of asthma. 8. Intestinal adhesions causing small bowel obstruction. 9. Iron deficiency anemia. 10. Internal hernia. OPERATION: 1. Diagnostic laparoscopy with extensive lysis of adhesions over hour. 2. Laparoscopic closure of internal hernias, jejunojejunostomy mesenteric defect. ANESTHESIA: General with 30 mL Marcaine with epinephrine. ESTIMATED BLOOD LOSS: 5 mL. SPECIMENS REMOVED: None. COMPLICATIONS: None. OPERATIVE FINDINGS: 1. Intestinal adhesive band disease found along the epigastrium as the cause of her abdominal pain. 2. Internal hernia caused by adhesive band disease completely lysed. 3. Closure of the jejunojejunostomy mesenteric defect. INDICATIONS: Karen Yoo is a 36-year-old female with previous history of Deepika-en-Y gastric bypass done over 9 months ago. She was doing well and then after eating her supper she developed acute onset epigastric abdominal pain. She was initially seen in [place] and then transferred to [facility] for further evaluation and management. She had been able to pass some flatus; however, despite eating, her abdominal pain had grown worse. Diagnostic images were obtained. With her history of gastric bypass, cause of her pain including internal hernia, volvulus as well as intussusception cannot be excluded. Diagnostic laparoscopy with surgical intervention, possible small bowel resection was described at length. Informed consent was obtained. DESCRIPTION OF PROCEDURE: Patient was brought to the operating room, laid in supine position. After general induction, the abdomen had been prepped and draped in standard sterile fashion. A Avila catheter also had been placed. Prior to incision, a timeout protocol was confirmed with surgical team regarding the patient's name including procedures to be performed. She also had preoperative antibiotics of vancomycin. Initial incision was made along her previous cicatrix along the epigastrium using a 5 mm 0-degree laparoscope. The abdomen was entered and insufflated to 15 mmHg pressure, which she tolerated well. Diagnostic laparoscopy demonstrated no injury to bowel, viscera or mesentery. Next a 5 mm trocar was placed along the right upper quadrant along her previous incision. Another 5 mm trocar was placed along the left lower quadrant followed by a 10 mm port along the left upper quadrant all under direct visualization. Immediately adhesions were found along the epigastrium consistent with her area of pain. A thick adhesive band actually incorporating the Deepika limb as well as the portion of her common channel was found twisted and causing a volvulus from the adhesive band. Along the lower aspect of the abdomen, the sigmoid colon was found to be moderately distended with air. No volvulus was identified, however. Initial attention was brought to the adhesive band along the epigastrium which addressed using blunt dissection of a dissecting grasper. The adhesive band was resected from the abdominal wall using a Sonicision. Next under careful inspection, an internal hernia was created by this adhesive band which was then lysed. The adhesions were subsequently freed. Next, attention was brought to the right lower quadrant whereby the small bowel was investigated in a retrograde fashion to the jejunojejunostomy. No further evidence of small bowel dilatation was identified or evidence of intussusception. The bowel was ran to the jejunojejunostomy. The patient was then placed in reverse Trendelenburg position, whereby the Deepika limb was identified at the gastric pouch and investigated in the anterograde fashion to the jejunojejunostomy. Again adhesions were freed from the Deepika limb. A jejunojejunostomy mesenteric defect was identified and then closed using 2-0 silk on Endo stitch and Lapra-Ty. Once the defect was closed, hemostasis was subsequently checked in the abdomen and found to be adequate. Instruments including pneumoperitoneum were evacuated from the abdominal cavity. The rest of local was used to anesthetize the incisions. The incisions were reapproximated using 4-0 Monocryl in interrupted fashion. Dermabond was applied to the skin. At the end of the procedure, needle, sponge, and instrument count had been verified correct by surgical supervisor. The patient was taken to the postanesthesia care unit in stable condition. UYEN
[2017-01-29 14:00] LABS: Vitamin D, 1, 25-Dihydroxy 29 pg/mL (20 - 79)
[2017-02-02 16:45] LABS: Selenium 86 mcg/L (63-160)
--- NOTE | 2017-02-07 16:38 | P.OP ---
Date of Procedure: 01/28/17 Description of Procedure: DATE OF SERVICE: 01/28/2017 SURGEON: MARYCRUZ LYONS MD CLINICAL ADMINISTRATOR: NONE. PREOPERATIVE DIAGNOSES: 1. Acute onset epigastric abdominal pain. 2. History of small bowel obstruction. 3. Nausea and vomiting. 4. History of gastric bypass. 5. Morbid obesity due to excess calories. 6. Body mass index 42.6. 7. History of asthma. POSTOPERATIVE DIAGNOSES: 1. Acute onset epigastric abdominal pain. 2. History of small bowel obstruction. 3. Nausea and vomiting. 4. History of gastric bypass. 5. Morbid obesity due to excess calories. 6. Body mass index 42.6. 7. History of asthma. 8. Intestinal adhesions causing small bowel obstruction. 9. Iron deficiency anemia. 10. Internal hernia. OPERATION: 1. Diagnostic laparoscopy with extensive lysis of adhesions over hour. 2. Laparoscopic closure of internal hernias, jejunojejunostomy mesenteric defect. ANESTHESIA: General with 30 mL Marcaine with epinephrine. ESTIMATED BLOOD LOSS: 5 mL. SPECIMENS REMOVED: None. COMPLICATIONS: None. OPERATIVE FINDINGS: 1. Intestinal adhesive band disease found along the epigastrium as the cause of her abdominal pain. 2. Internal hernia caused by adhesive band disease completely lysed. 3. Closure of the jejunojejunostomy mesenteric defect. INDICATIONS: Karen Yoo is a 36-year-old female with previous history of Deepika-en-Y gastric bypass done over 9 months ago. She was doing well and then after eating her supper she developed acute onset epigastric abdominal pain. She was initially seen in [place] and then transferred to [facility] for further evaluation and management. She had been able to pass some flatus; however, despite eating, her abdominal pain had grown worse. Diagnostic images were obtained. With her history of gastric bypass, cause of her pain including internal hernia, volvulus as well as intussusception cannot be excluded. Diagnostic laparoscopy with surgical intervention, possible small bowel resection was described at length. Informed consent was obtained. DESCRIPTION OF PROCEDURE: Patient was brought to the operating room, laid in supine position. After general induction, the abdomen had been prepped and draped in standard sterile fashion. A Avila catheter also had been placed. Prior to incision, a timeout protocol was confirmed with surgical team regarding the patient's name including procedures to be performed. She also had preoperative antibiotics of vancomycin. Initial incision was made along her previous cicatrix along the epigastrium using a 5 mm 0-degree laparoscope. The abdomen was entered and insufflated to 15 mmHg pressure, which she tolerated well. Diagnostic laparoscopy demonstrated no injury to bowel, viscera or mesentery. Next a 5 mm trocar was placed along the right upper quadrant along her previous incision. Another 5 mm trocar was placed along the left lower quadrant followed by a 10 mm port along the left upper quadrant all under direct visualization. Immediately adhesions were found along the epigastrium consistent with her area of pain. A thick adhesive band actually incorporating the Deepika limb as well as the portion of her common channel was found twisted and causing a volvulus from the adhesive band. Along the lower aspect of the abdomen, the sigmoid colon was found to be moderately distended with air. No volvulus was identified, however. Initial attention was brought to the adhesive band along the epigastrium which addressed using blunt dissection of a dissecting grasper. The adhesive band was resected from the abdominal wall using a Sonicision. Next under careful inspection, an internal hernia was created by this adhesive band which was then lysed. The adhesions were subsequently freed. Next, attention was brought to the right lower quadrant whereby the small bowel was investigated in a retrograde fashion to the jejunojejunostomy. No further evidence of small bowel dilatation was identified or evidence of intussusception. The bowel was ran to the jejunojejunostomy. The patient was then placed in reverse Trendelenburg position, whereby the Deepika limb was identified at the gastric pouch and investigated in the anterograde fashion to the jejunojejunostomy. Again adhesions were freed from the Deepika limb. A jejunojejunostomy mesenteric defect was identified and then closed using 2-0 silk on Endo stitch and Lapra-Ty. Once the defect was closed, hemostasis was subsequently checked in the abdomen and found to be adequate. Instruments including pneumoperitoneum were evacuated from the abdominal cavity. The rest of local was used to anesthetize the incisions. The incisions were reapproximated using 4-0 Monocryl in interrupted fashion. Dermabond was applied to the skin. At the end of the procedure, needle, sponge, and instrument count had been verified correct by auto repair technician. The patient was taken to the postanesthesia care unit in stable condition.
== END 2017-01-29 09:45 | disposition home or self-care (01) | DRG 330 ==
LOC: EC 02:51 → 3SUR 03:10
PROVIDERS: ADMIT Surgery; ATTEND Surgery
PROC: 0DNW4ZZ Release Peritoneum, Percutaneous Endoscopic Approach (ICD-10-PCS; principal; 2017-01-26)
PROC: 0DQA4ZZ Repair Jejunum, Percutaneous Endoscopic Approach (ICD-10-PCS; 2017-01-26)
DX: K56.5 Intestinal adhesions [bands] with obstruction (postinfection) (principal); K91.89 Other postprocedural complications and disorders of digestive system; K95.89 Other complications of other bariatric procedure; E66.01 Morbid (severe) obesity due to excess calories; D50.9 Iron deficiency anemia, unspecified; K56.2 Volvulus; F32.9 Major depressive disorder, single episode, unspecified; F41.9 Anxiety disorder, unspecified; G47.30 Sleep apnea, unspecified; J45.909 Unspecified asthma, uncomplicated; K21.9 Gastro-esophageal reflux disease without esophagitis; Z68.41 Body mass index [BMI] 40.0-44.9, adult; Z98.2 Presence of cerebrospinal fluid drainage device; Z98.84 Bariatric surgery status; Z79.899 Other long term (current) drug therapy; Z88.1 Allergy status to other antibiotic agents; Z88.0 Allergy status to penicillin
CPT/HCPCS: 36415; 74000; 74177; 80053; 80061; 81025; 82525; 82607; 82652; 83036; 83540; 83550; 83605; 83735; 84100; 84255; 84425; 84443; 84590; 84630; 85025; 96374; 99285

== ENCOUNTER → 2017-02-04 | Outpatient (CLI) | payer OTHER ==
[2017-02-04 10:18] VITALS: BMI 42.0
[2017-02-04 14:50] VITALS: BP 123/77; PULSE 95; RESP 14; TEMP 98.3
--- NOTE | 2017-03-29 08:38 | PN ---
DATE OF SERVICE: 02/04/2017 CHIEF COMPLAINT: Follow-up diagnostic laparoscopy. HISTORY OF PRESENT ILLNESS: Karen Yoo is a 36-year-old female status post Deepika-en-Y gastric bypass in April 2016. She was recently hospitalized on 01/26/2017 now approximately 1 to 2 weeks ago for abdominal pain including bowel obstruction. She had diagnostic laparoscopy demonstrating intra-abdominal adhesions. Since her procedure, she denies any troubles with abdominal pain. She comes in with constipation. Separately she reports thrombophlebitis of the left arm. At her height of 5 feet 6 inches, her ideal body weight is 154 pounds. Her initial weight was 392 pounds. Today she comes in weighing 260 pounds. She has maintained a 132 pound weight loss in less than a year. Percent excess weight loss is 56%. Body mass index is reduced from 63.4 down to 42. Total BMI point reduction is 21 points. PHYSICAL EXAM: VITAL SIGNS: 98.3, 95, 14, 123/77, 5 feet 6 inches, 260 pounds, body mass index of 42. ABDOMEN: All incisions granulated. No palpable incisional hernias. No signs of infection. MUSCULOSKELETAL: Mild fullness along the left arm consistent with thrombophlebitis. No signs of infection. GENERAL: Well-developed female no acute distress. HEENT: No scleral icterus. Extraocular movements grossly intact. Moist buccal mucosa. NECK: Supple without lymphadenopathy. CHEST: Nonlabored respirations with equal bilateral excursions. CARDIOVASCULAR: Regular rate and rhythm. NEURO: No focal or lateralizing signs. Cranial nerves 2 through 12 grossly within normal limits. PSYCH: Appropriate affect. Alert and oriented to person, place, and time. ASSESSMENT: 1. Morbid obesity due to excess calories. 2. Body mass index reduced from 63.4 down to 42. 3. Personal history of intra-abdominal adhesions. 4. History of abdominal pain. 5. Left arm thrombophlebitis. PLAN: 1. I have recommended a warm compress including using nonsteroidal anti-inflammatories with omeprazole. 2. For her history of constipation, recommend MiraLAX. 3. No antibiotics recommended for thrombophlebitis. 4. Recommend followup in approximately 3 months; otherwise for her anniversary in April 2017. [facility]OSPITALMike
== END | disposition home or self-care (01) ==
LOC: BARWHC3 09:35
PROVIDERS: ATTEND Surgery Plastic and Reconstructive Surgery
DX: Z71.3 Dietary counseling and surveillance (principal); E66.01 Morbid (severe) obesity due to excess calories; Z68.41 Body mass index [BMI] 40.0-44.9, adult
CPT/HCPCS: 97803; G0463; 99211

== ENCOUNTER → 2017-12-13 | Outpatient (CLI) | payer OTHER ==
[2017-12-13 16:53] LABS: HCT 40.7 % (34.0-46.0); HGB 13.8 gm/dL (11.4-16.0); MCHC 33.8 g/dL (31.0-37.0); MCV 91.7 fL (80.0-100.0); Mean Platelet Volume 7.3; Platelet Count 233 k/uL (150-450); RBC 4.44 m/uL (3.80-5.40); RDW 12.5 % (11.5-15.5)
[2017-12-13 17:01] LABS: Partial Thromboplastin Time 23.9 sec (22.0-30.0); Prothrombin Time 9.7 sec (9.0-12.0)
[2017-12-13 17:11] LABS: ALT 24 U/L (9-52); AST 14 U/L (14-36); Albumin 3.6 g/dL (3.5-5.0); Alkaline Phosphatase 64 U/L (38-126); Anion Gap 7 mmol/L; Blood Urea Nitrogen 9 mg/dL (7-17); Calcium 9.3 mg/dL (8.4-10.2); Carbon Dioxide 26 mmol/L (22-30); Chloride 103 mmol/L (98-107); Cholesterol 129 mg/dL (<200); Glucose 85 mg/dL (74-99); HDL Cholesterol 51 mg/dL (40-60); LDL Cholesterol,Calculated 69 mg/dL (0-99); Magnesium 1.9 mg/dL (1.6-2.3); Phosphorus 4.3 mg/dL (2.5-4.5); Potassium 4.2 mmol/L (3.5-5.1); Sodium 136 mmol/L (137-145); Total Bilirubin 0.4 mg/dL (0.2-1.3); Total Protein 6.1 g/dL (6.3-8.2); Triglycerides 46 mg/dL (<150)
[2017-12-14 00:31] LABS: Parathyroid Hormone Intact 39.6 pg/mL (14.0-72.0)
[2017-12-14 01:59] LABS: Iron Saturation 14.38 (12.00-45.00)
[2017-12-14 02:08] LABS: Vitamin D 25 Hydroxy 23.3 ng/mL (30.0-100.0)
[2017-12-14 02:20] LABS: Hemoglobin A1C 5.1 % (4.0-6.0)
[2017-12-14 02:27] LABS: Folate, Serum 14.8 ng/mL
[2017-12-14 12:41] LABS: Zinc, Serum 78 ug/dL (60-130)
[2017-12-15 05:50] LABS: Vitamin B1 56 ug/L (38-122)
[2017-12-15 10:21] LABS: Vitamin A 32 ug/dL (38-106)
== END | disposition home or self-care (01) ==
LOC: LABWHC1 16:23
PROVIDERS: ATTEND Surgery Plastic and Reconstructive Surgery
DX: E21.1 Secondary hyperparathyroidism, not elsewhere classified (principal); E89.1 Postprocedural hypoinsulinemia; E50.8 Other manifestations of vitamin A deficiency; K90.89 Other intestinal malabsorption; E44.0 Moderate protein-calorie malnutrition; E55.9 Vitamin D deficiency, unspecified; K74.1 Hepatic sclerosis; N19 Unspecified kidney failure; K50.90 Crohn's disease, unspecified, without complications
CPT/HCPCS: 36415; 80053; 80061; 82306; 82525; 82607; 82728; 82746; 83036; 83540; 83550; 83735; 83970; 84100; 84134; 84255; 84425; 84443; 84590; 84630; 85027; 85610; 85730

== ENCOUNTER → 2017-12-27 | Outpatient (CLI) | payer OTHER ==
[2017-12-27 16:21] LABS: HCT 41.9 % (34.0-46.0); HGB 13.9 gm/dL (11.4-16.0); MCH 30.6 pg (25.0-35.0); MCHC 33.1 g/dL (31.0-37.0); MCV 92.5 fL (80.0-100.0); Mean Platelet Volume 7.2; Platelet Count 246 k/uL (150-450); RBC 4.53 m/uL (3.80-5.40); WBC 9.2 k/uL (3.8-10.6)
[2017-12-27 16:35] LABS: Glucose 82 mg/dL (74-99)
--- NOTE | 2017-12-27 17:46 | US ---
EXAMINATION TYPE: US OB <=14 wks transvag DATE OF EXAM: 12/27/2017 COMPARISON: NONE CLINICAL HISTORY: Viability. Viability, cramping, 8 years ago EXAM PERFORMED: Transvaginal (TV) and Transabdominal (TA) - TV performed to better visualize uterus and ovaries EXAM MEASUREMENTS: GESTATIONAL AGE / DATING Physician Established: not yet established Dates by LMP: (10 weeks/4 days) EDC: 07/21/18 Dates by First Scan: No previous this is first scan Dates by Current Scan for: (10 weeks/5 days) EDC: 07/20/18 MATERNAL ANATOMY Uterus: 8.9 x 8.3 x 8.9cm Right Ovary: unable to visualize Left Ovary: 3.4 x 2.6 x 3.4cm Post CDS / Adnexa: small amount of free fluid posterior cul-de-sac Presence of free fluid: yes Presence of corpus luteal cyst: yes, left ovary = 2.0 x 1.9 x 1.9cm GESTATION / SURVEY CRL: 3.8cm (10 weeks/5 days) Yolk Sac (normal less than 6mm): 3.6mm Heart Rate: 160 bpm Rhythm: Normal IUP: Viable IUP Date of LMP: 10/14/17 Beta HcG (if available): Not available at this time Viable IUP 10wks/5days with GLENN of 07/20/18. Second gestational sac with yolk sac identified with no evidence of pole at this time. Corpus luteum left ovary. Small amount of free fluid posterior c ul-de-sac. IMPRESSION: 2 intrauterine gestational sacs are demonstrated. One sac has a pole and cardiac activity that corresponds to 10 weeks 5 days gestation. The GLENN is 07/20/2018. The second gestational sac is smalle r with a yolk sac but no pole seen. This could be a blighted ovum.
[2017-12-28 05:58] LABS: Toxoplasma Antibody (IgG) <3.0 IU/mL (<7.2); Toxoplasma Antibody (IgM) <3.0 AU/mL (<8.0)
[2017-12-28 12:16] LABS: HIV AB P24 Non-Reactive (Non-Reactive); HIV P24 AG Non-Reactive (Non-Reactive)
== END | disposition home or self-care (01) ==
LOC: RADUSWWP 15:04
PROVIDERS: ATTEND Obstetrics & Gynecology
DX: O36.80X0 Pregnancy with inconclusive fetal viability, not applicable or unspecified (principal); Z3A.10 10 weeks gestation of pregnancy; O26.811 Pregnancy related exhaustion and fatigue, first trimester
CPT/HCPCS: 36415; 76801; 76817; 82565; 82947; 85027; 86762; 86777; 86778; 86780; 86850; 86900; 86901; 87340; 87390

== ENCOUNTER 2018-07-15 06:10 | Inpatient (IN) | payer OTHER ==
[2018-07-15] MEDS ORDERED: LACTATED RINGERS 1,000 ML IV ONE (06:14)
[2018-07-15] MEDS ORDERED: CITRIC ACID-SODIUM CITRATE 15 ML CUP PO ONE (06:14)
[2018-07-15 06:20] VITALS: BMI 37.4
[2018-07-15 06:38] LABS: Basophils % (A) 0 %; Eosinophils # (A) 0.2 k/uL (0-0.7); Eosinophils % (A) 2 %; HCT 45.2 % (34.0-46.0); HGB 15.8 gm/dL (11.4-16.0); Lymphocytes # (A) 2.2 k/uL (1.0-4.8); Lymphocytes % (A) 24 %; MCH 32.8 pg (25.0-35.0); MCHC 34.9 g/dL (31.0-37.0); MCV 94.1 fL (80.0-100.0); Mean Platelet Volume 7.1; Monocytes # (A) 0.5 k/uL (0-1.0); Monocytes % (A) 6 %; Neutrophils # (A) 6.2 k/uL (1.3-7.7); Neutrophils % (A) 67 %; Platelet Count 265 k/uL (150-450); WBC 9.3 k/uL (3.8-10.6)
[2018-07-15] MEDS ORDERED: AZITHROMYCIN 500 MG in SODIUM CHLORIDE 0.9% 250 ML IVPB STA (08:01)
[2018-07-15] MEDS ORDERED: KETOROLAC 30 MG/ML 1 ML VIAL ONE (08:16)
[2018-07-15] MEDS ORDERED: MORPHINE SULFATE (PF) 0.3 MG/0.3 ML SYR ONE (08:16)
[2018-07-15] MEDS ORDERED: ONDANSETRON 4 MG/2 ML VIAL ONE (08:16)
[2018-07-15] MEDS ORDERED: NALBUPHINE 10 MG/ML VIAL (10ML MDV) ONE (08:16)
[2018-07-15] MEDS ORDERED: OXYTOCIN 10 UNIT/ML 1 ML VIAL ONE (08:16)
[2018-07-15] MEDS ORDERED: METOCLOPRAMIDE 5 MG/ML 2 ML VIAL IVP PRN (09:07)
[2018-07-15] MEDS ORDERED: diphenhydrAMINE 50 MG/ML 1 ML VIAL IVP PRN ×2 (09:07)
[2018-07-15] MEDS ORDERED: IBUPROFEN 600 MG TAB PO PRN (09:07)
[2018-07-15] MEDS ORDERED: NALOXONE 0.4 MG/ML 1 ML VIAL IV PRN (09:07)
[2018-07-15] MEDS ORDERED: KETOROLAC 30 MG/ML 1 ML VIAL IVP PRN (09:07)
[2018-07-15] MEDS ORDERED: ACETAMINOPHEN TAB 325 MG TAB PO PRN (09:07)
[2018-07-15] MEDS ORDERED: diphenhydrAMINE 25 MG CAP PO PRN (09:07)
[2018-07-15] MEDS ORDERED: diphenhydrAMINE 50 MG CAP PO PRN (09:07)
[2018-07-15] MEDS ORDERED: ZOLPIDEM 5 MG TAB PO PRN (09:07)
[2018-07-15] MEDS ORDERED: ONDANSETRON 4 MG/2 ML VIAL IVP PRN (09:07)
--- NOTE | 2018-07-15 09:10 | P.HPOB ---
History of Present Illness H&P Date: 07/15/18 Chief Complaint: Intrauterine at term: Prior section: Family planning Karen is a 37-year-old at 39 weeks gestation arise for repeat low transverse section with partial salpingectomy. Risks and benefits of this procedure were discussed with patient in detail and all questions were answered for her prior to proceeding to the operating room. Her Precis course was, complicated by use of progesterone for history of labor as well as advanced maternal age. She was followed concurrently with maternal- medicine. It is pertinent to note that she also has ALLERGIES to multiple antibiotics and that ultimately while she tolerated is azithromycin as her only antibody that she can remember she refused cephalosporins and Cleocin therefore IV is azithromycin was used as prophylaxis. All other questions were answered for her prior to proceeding to the operating room. Pertinent labs do include O + blood type Rh antibody was negative, rubella immune, hepatitis B surface antigen and RPR as well as GBS were all negative. Assessment intrauterine at term. Plan repeat low transverse section with partial salpingectomy bilaterally Past Medical History Past Medical History: Asthma, Diabetes Mellitus, GERD/Reflux, Sleep Apnea/CPAP/ BIPAP Additional Past Medical History / Comment(s): HX DM/SLEEP APNEA PRIOR TO SURGERY , POST GASTRIC BYPASS, UNABLE TO KEEP FOOD DOWN. PRE-MS, NO RX SINCE 08/2015. CURRENT . History of Any Multi-Drug Resistant Organisms: None Reported Past Surgical History: Adenoidectomy, Bariatric Surgery, Section, Tonsillectomy Additional Past Surgical History / Comment(s): 04/13/16: MAYLIN-EN-Y GASTRIC BYPASS. EGD 06/10/16; TWISTED BOWEL PROCEDURE 01/2017. C-S 2008. Past Anesthesia/Blood Transfusion Reactions: No Reported Reaction Additional Past Anesthesia/Blood Transfusion Reaction / Comment(s): no hx blood transfusion Past Psychological History: ADD/ADHD, Anxiety, Depression Smoking Status: Current every day smoker Past Alcohol Use History: None Reported Additional Past Alcohol Use History / Comment(s): SMOKING ON/OFF X11 YEARS, 1/2 PPD, DOWN TO COUPLE CIGARETTES PER DAY. Past Drug Use History: Marijuana Additional Drug Use History / Comment(s): SMOKES COUPLE TIMES A WEEK, DENIES CURRENT USE. - Past Family History Father History Unknown: Yes Family Medical History: No Reported History Mother Family Medical History: No Reported History Medications and Allergies Home Medications Medication Instructions Recorded Confirmed Type Pnv No.95/Ferrous Fum/Folic AC 1 each PO DAILY 07/14/18 07/15/18 History [ Multivitamin Tablet] Allergies Allergy/AdvReac Type Severity Reaction Status Date / Time levofloxacin [From Levaquin] Allergy Severe Anaphylaxis Verified 07/14/18 15:11 clindamycin Allergy Rash/Hives/ Verified 07/14/18 15:11 RED FACE Penicillins Allergy Anaphylaxis Verified 07/14/18 15:11 paper tape Allergy rash and Uncoded 07/14/18 15:11 tears skin Exam Osteopathic Statement: *. No significant issues noted on an osteopathic structural exam other than those noted in the History and Physical/Consult. Vital Signs Temp Pulse Resp BP 07/15/18 06:13 96.1 F L 69 16 129/82 Intake and Output 07/14/18 07/15/18 07/15/18 22:59 06:59 14:59 Other: Weight 108.862 kg 105.233 kg - OBG Physical Exam Breast: both: normal (no masses) Abdomen: bowel sounds normal, no diffuse tenderness, no bruit present, no guarding noted, no hepatomegaly, no splenomegaly, no mass Vulva: both: normal Vagina: normal moisture, no discharge Cervix: no lesion, no discharge Uterus: normal size, normal contour Adnexa: both: normal Anus/Rectum: normal perianal skin, no rectal mass, no hemorrhoids, heme negative Results Result Diagrams: 07/15/18 06:23
--- NOTE | 2018-07-15 09:14 | P.OP ---
Date of Procedure: 07/15/18 Preoperative Diagnosis: Intrauterine at term: Family planning: Prior section Postoperative Diagnosis: Same Procedure(s) Performed: Repeat low transverse section with partial salpingectomy bilaterally Anesthesia: spinal Surgeon: Charlie Gonzales Executive Sales Assistant #1: Gunnar Nolasco Estimated Blood Loss (ml): 500 IV fluids (ml): 1,000 Urine output (ml): 300 Pathology: none sent Condition: stable Disposition: floor Operative Findings: Male scores of 8 and 9 at one and 5 minutes respectively and weight of 6 lbs. 13 oz. Description of Procedure: Patient was taken to the operating suite where a spinal anesthetic was found be adequate. She was prepped and draped in normal sterile fashion and placed in dorsal supine position with leftward tilt. Initially a Pfannenstiel skin incision was made and this incision was then carried through to the underlying layer of the fashion with second knife. Fascia was then nicked in the midline and this opening was extended laterally with Thomas scissors. Superior and inferior aspect of this incision were then grasped tented up and bluntly and sharply dissected off the rectus muscles. Rectus muscles were then divided midline and blunt dissection the peritoneum was made. This opening was then extended superiorly and inferiorly with good visualization of both bowel bladder. Bladder blade was then placed and a bladder flap identified. It was entered sharply with Metzenbaum scissors and this opening was extended across the face of the uterus with Metzenbaum scissors and bladder was dissected out of the operative field bluntly. Knife was then used to incise uterus. This opening was fully created with a hemostat and clear fluid is noted. It was then extended bluntly. Head was then atraumatically delivered a nuchal cord 1 was easily reduced. Mouth nares were then bulb suctioned anterior posterior shoulders delivered followed by the remainder the baby. Umbilical cord was then clamped cut usual fashion an nursery personnel was present to assume care. Placenta was then delivered intact and Pitocin was added to the IV. Uterus was then exteriorized cleared of clots and debris and closed in 1 layer with 0 Vicryl suture. Once excellent hemostasis was obtained attention was turned to the fallopian tubes where a hemostat was placed on both the right and left fallopian tube 2 cm meters from uterine cornu. A window was created in the mesosalpinx with Bovie cautery and 2 proximal and 2 distal 2-0 silk sutures were placed approximately 2 cm apart. Intervening segment was then removed and tips were cauterized. Blood and debris was then suctioned the posterior cul-de- sac and uterus was reinserted into the abdomen. Reinspection the incision line and fallopian tubes was done no bleeding is noted. Peritoneal layer was then reapproximated with 0 Vicryl suture. Fascial layer was closed with 0 Vicryl suture. One layer of 3-0 Vicryl was placed in deep subcuticular tissues to reapproximate skin and close the space. Skin was then closed with 3-0 Vicryl. Patient tolerated surgery very well. Sponge, lap, needle counts were all correct 2. A she was then taken to the recovery room in stable and satisfactory condition.
[2018-07-15] MEDS: LACTATED RINGERS 1,000 ML IV SCH ×3 (17:49→20:48)
[2018-07-15] MEDS: HYDROcodone/APAP 7.5-325MG 1 EACH TAB PO PRN (20:05)
[2018-07-15] MEDS: SENNOSIDES-DOCUSATE SODIUM 1 EACH TAB PO SCH (20:06)
[2018-07-16] MEDS: LACTATED RINGERS 1,000 ML IV SCH ×3 (01:27→20:57)
[2018-07-16] MEDS: HYDROcodone/APAP 7.5-325MG 1 EACH TAB PO PRN ×4 (04:14→21:38)
[2018-07-16 07:56] LABS: Basophils % (A) 0 %; Eosinophils # (A) 0.1 k/uL (0-0.7); Eosinophils % (A) 1 %; HCT 32.1 % (34.0-46.0); Lymphocytes # (A) 1.6 k/uL (1.0-4.8); Lymphocytes % (A) 14 %; MCHC 35.2 g/dL (31.0-37.0); MCV 93.7 fL (80.0-100.0); Mean Platelet Volume 7.2; Monocytes # (A) 0.5 k/uL (0-1.0); Monocytes % (A) 5 %; Neutrophils % (A) 79 %; Platelet Count 210 k/uL (150-450); RBC 3.43 m/uL (3.80-5.40); RDW 13.1 % (11.5-15.5); WBC 11.5 k/uL (3.8-10.6)
[2018-07-16 08:08] LABS: HGB 11.3 gm/dL (11.4-16.0)
--- NOTE | 2018-07-16 08:14 | P.PNOBGPC ---
Subjective - Subjective Principal diagnosis: Postop day 1 Interval history: Overall Karen is doing very well. She is ambulating, voiding and she is tolerating her diet. She voices no complaints. Vital signs are stable and afebrile. Heart regular, lungs clear, extremities without pain. Abdomen is soft uterus is firm incision appears clean dry and intact. Assessment postop day 1. Plan continue current care Patient reports: Reports appetite normal, Reports voiding normally, Reports pain well controlled, Reports ambulating normally : doing well Objective - Vital Signs Latest vital signs: Vital Signs Temp Pulse Resp BP Pulse Ox 07/16/18 04:00 98.6 F 74 16 127/76 07/16/18 00:00 98.3 F 83 16 127/60 99 07/15/18 20:00 98.2 F 87 16 124/58 07/15/18 16:00 98.2 F 86 18 108/59 07/15/18 11:26 97.4 F L 67 18 119/65 07/15/18 10:56 97.2 F L 62 16 112/58 07/15/18 10:26 54 L 16 114/70 07/15/18 10:11 57 L 16 120/68 07/15/18 09:56 54 L 16 117/76 07/15/18 09:40 52 L 16 104/56 07/15/18 09:26 97.0 F L 58 L 16 108/64 Intake and Output 07/15/18 07/16/18 07/16/18 22:59 06:59 14:59 Intake Total 600 Output Total 250 1400 Balance 350 -1400 Intake: Oral 600 Output: Urine 250 1400 Uretheral ([place]) 500 Other: # Voids 1 - Exam Lungs: bilateral: normal Chest: Normal S1, Normal S2 Extremities: Present: normal Abdomen: Present: normal appearance, soft. Absent: distention, tenderness Incision: Present: normal, dry, intact Uterus: Present: normal, firm - Labs Labs: Abnormal Lab Results - Last 24 Hours (Table) 07/16/18 Range/Units 07:21 WBC 11.5 H (3.8-10.6) k/uL RBC 3.43 L (3.80-5.40) m/uL Hgb 11.3 L D (11.4-16.0) gm/dL Hct 32.1 L (34.0-46.0) % Neutrophils # 9.0 H (1.3-7.7) k/uL
[2018-07-16] MEDS: SENNOSIDES-DOCUSATE SODIUM 1 EACH TAB PO SCH ×2 (09:06→21:38)
[2018-07-16] MEDS: SIMETHICONE 80 MG CHEWABLE PO SCH ×3 (12:38→21:38)
--- NOTE | 2018-07-16 19:33 | P.PN ---
Progress Note - Text Progress Note Date: 07/16/18 Postoperative day 1 status post section under spinal anesthesia, and intrathecal morphine given for postoperative analgesia, patient doing well, there is no anesthesia related complications, Patient had no headache, vital signs stable , Assessment and plan= postop day 1 status post , doing well there is no anesthesia related complication.
[2018-07-17 00:03] VITALS: RESP 16
[2018-07-17] MEDS: HYDROcodone/APAP 7.5-325MG 1 EACH TAB PO PRN ×2 (05:01→10:53)
[2018-07-17] MEDS: SENNOSIDES-DOCUSATE SODIUM 1 EACH TAB PO SCH (07:29)
[2018-07-17] MEDS: SIMETHICONE 80 MG CHEWABLE PO SCH (07:31)
[2018-07-17 07:32] VITALS: BP 120/66; PULSE 81; TEMP 97.8
--- NOTE | 2018-08-05 08:45 | P.DS ---
Providers Date of admission: 07/15/18 06:10 Expected date of discharge: 07/17/18 Attending physician: Charlie Gonzales Primary care physician: Stated None Hospital Course: Karen did well during her hospital course. She had no significant complaints and was discharged home on postop day 2. Her vital signs were stable and she was afebrile. Heart regular, lungs clear, extremities without pain. Prescription for [place] was supported to her pharmacy. All questions were answered for her prior to discharge. Discharge instructions were thoroughly reviewed and she was stable for discharge. Incision was otherwise clean dry and intact and she did have bowel sounds. Uterus was firm lochia was light. Plan - Discharge Summary New Discharge Prescriptions: New HYDROcodone/APAP 5-325MG [[place] 5-325] 1 tab PO Q4HR PRN #30 tab PRN Reason: Pain Discharge Medication List HYDROcodone/APAP 5-325MG [[place] 5-325] 1 tab PO Q4HR PRN #30 tab 07/17/18 [Rx] Follow up Appointment(s)/Referral(s): Charlie Gonzales DO [Doctor of Osteopathic Medicine] - 1 Week Activity/Diet/Wound Care/Special Instructions: No heavy lifting, limit stairs and driving, and pelvic rest. If any high temperatures, heavy bleeding, or severe pain call my office. No tub baths for 2 weeks. Showering is fine. Keep incision clean and dry by washing with gentle soap and water twice a day and Pap driving. Discharge Disposition: HOME SELF-CARE
== END 2018-07-17 11:29 | disposition home or self-care (01) | DRG 784 ==
LOC: 4FBP 06:10
PROVIDERS: ADMIT Obstetrics & Gynecology; ATTEND Obstetrics & Gynecology
PROC: 0UB70ZZ Excision of Bilateral Fallopian Tubes, Open Approach (ICD-10-PCS; 2018-07-15)
PROC: 10D00Z1 Extraction of Products of Conception, Low, Open Approach (ICD-10-PCS; principal; 2018-07-15 08:00)
DX: O34.211 Maternal care for low transverse scar from previous cesarean delivery (principal); O99.354 Diseases of the nervous system complicating childbirth; O24.92 Unspecified diabetes mellitus in childbirth; Z37.0 Single live birth; O69.81X0 Labor and delivery complicated by cord around neck, without compression, not applicable or unspecified; O99.334 Smoking (tobacco) complicating childbirth; F17.210 Nicotine dependence, cigarettes, uncomplicated; O99.344 Other mental disorders complicating childbirth; F32.9 Major depressive disorder, single episode, unspecified; F41.9 Anxiety disorder, unspecified; F90.9 Attention-deficit hyperactivity disorder, unspecified type; O99.52 Diseases of the respiratory system complicating childbirth; J45.909 Unspecified asthma, uncomplicated; O99.62 Diseases of the digestive system complicating childbirth; K21.9 Gastro-esophageal reflux disease without esophagitis; G47.30 Sleep apnea, unspecified; O99.844 Bariatric surgery status complicating childbirth; Z3A.39 39 weeks gestation of pregnancy; Z88.1 Allergy status to other antibiotic agents; Z88.0 Allergy status to penicillin; Z91.048 Other nonmedicinal substance allergy status
CPT/HCPCS: 85025; 86850; 86900; 86901; 88302

== ENCOUNTER 2018-07-22 21:46 | Emergency (ER) | payer OTHER ==
[2018-07-22 22:17] VITALS: RESP 16
[2018-07-22] MEDS ORDERED: ONDANSETRON 4 MG/2 ML VIAL IVP STA (22:59)
[2018-07-22] MEDS ORDERED: SODIUM CHLORIDE 0.9% 1,000 ML IV ONE (22:59)
[2018-07-22] MEDS ORDERED: MORPHINE SULFATE 4 MG/ML SYRINGE IVP STA (22:59)
[2018-07-22 23:19] LABS: Appearance,Urine Clear (Clear); Bacteria,Urine Rare /hpf; Bilirubin,Urine Negative (Negative); Blood,Urine Moderate (Negative); Color,Urine Yellow; Glucose,Urine (UA) Negative (Negative); Ketones,Urine Negative (Negative); Leukocyte Esterase,Urine Negative (Negative); Mucus,Urine Rare /hpf; Nitrite,Urine Negative (Negative); PH, Urine 6.5 (5.0-8.0); Protein,Urine Negative (Negative); RBC,Urine 2 /hpf (0-5); Specific Gravity,Urine 1.021 (1.001-1.035); Squamous Epithelial Cell,Urine 2 /hpf (0-4); WBC,Urine 2 /hpf (0-5)
[2018-07-23 00:02] LABS: Basophils % (A) 0 %; Eosinophils # (A) 0.2 k/uL (0-0.7); Eosinophils % (A) 3 %; HCT 30.5 % (34.0-46.0); HGB 10.7 gm/dL (11.4-16.0); Lymphocytes % (A) 30 %; MCH 33.8 pg (25.0-35.0); MCV 96.4 fL (80.0-100.0); Mean Platelet Volume 6.9; Monocytes # (A) 0.5 k/uL (0-1.0); Monocytes % (A) 7 %; Neutrophils % (A) 59 %; RBC 3.16 m/uL (3.80-5.40); RDW 13.6 % (11.5-15.5); WBC 6.8 k/uL (3.8-10.6)
[2018-07-23 00:06] LABS: Platelet Count 456 k/uL (150-450)
[2018-07-23 00:36] LABS: ALT 20 U/L (9-52); AST 13 U/L (14-36); Albumin 2.8 g/dL (3.5-5.0); Alkaline Phosphatase 84 U/L (38-126); Anion Gap 5 mmol/L; Blood Urea Nitrogen 13 mg/dL (7-17); Calcium 8.5 mg/dL (8.4-10.2); Carbon Dioxide 25 mmol/L (22-30); Chloride 105 mmol/L (98-107); Glucose 86 mg/dL (74-99); Potassium 4.4 mmol/L (3.5-5.1); Sodium 135 mmol/L (137-145); Total Bilirubin 1.3 mg/dL (0.2-1.3); Total Protein 5.3 g/dL (6.3-8.2)
[2018-07-23 00:37] VITALS: TEMP 98
--- NOTE | 2018-07-23 00:40 | CT ---
EXAMINATION TYPE: CT abdomen pelvis w con DATE OF EXAM: 07/23/2018 COMPARISON: 01/26/2017 HISTORY: painful urination with pain near incision. CT DLP: 1527.5 mGycm Automated exposure control for dose reduction was used. TECHNIQUE: Helical acquisition of images was performed from the lung bases through the pelvis. CONTRAST: Performed without Oral Contrast and with IV Contrast, patient injected with 100mL mL of Isovue 300. FINDINGS: Lung bases are clear. There is no pleural effusion. Heart size is normal. There is no pericardial eff usion. There are surgical clips from bariatric surgery on the stomach. Spleen appears normal. Liver s hows no focal defect. Bile ducts are not dilated. Gallbladder is dilated and measures 5.1 cm. There i s no evidence of pancreatic mass. There is no adrenal mass. Kidneys show satisfactory contrast opacification. There is no hydronephrosi s. Ureters are not dilated. There is no retroperitoneal adenopathy. There is 10 x 5.5 cm x 14 cm high density mass within the anterior abdominal wall consistent with a hematoma. Uterus is anteverted. Ur inary bladder distends smoothly. There is no free fluid in the pelvis. There is no evidence of a donta l obstruction. I see no intestinal wall thickening. There is dilated loop of small bowel adjacent to the uterine fundus that measures 3.5 cm. Proximal small bowel is not dilated. I see no definite free air. The bony structures are intact. There is a large uterus noted. Uterus measures 16 cm in length. Uterus appears empty. IMPRESSION: LARGE LOWER ANTERIOR ABDOMINAL WALL HEMATOMA AT THE SURGERY SITE. SUBCUTANEOUS EDEMA OVER THE ANTERIO R ABDOMEN. SMALL SUBCUTANEOUS FLUID COLLECTION AT THE INCISION SITE THAT MEASURES 6X 4 X 2 CM CONSIST ENT WITH HEMATOMA. DILATED SMALL BOWEL IN THE LOWER ABDOMEN CONSISTENT WITH ILEUS. I DO NOT SEE EVIDE NCE FOR INTRAPERITONEAL HEMORRHAGE.
--- NOTE | 2018-07-23 01:32 | ED ---
Female Urogenital HPI - General Source: patient Mode of arrival: ambulatory Limitations: no limitations <Zulma Ibarra - Last Filed: 07/23/18 02:51> <Edie Garcia - Last Filed: 07/23/18 06:20> - General Chief complaint: Urogenital Stated complaint: jaundice Time Seen by Provider: 07/22/18 22:52 - History of Present Illness Initial comments: 37-year-old female patient who is 7 days presents to the emergency department today with complaints of lower abdominal pain and yellowing of the skin. Patient is also reporting dysuria, states it feels like she is being "razor blades" Patient states that over the last 2-3 days the pain in her abdomen has been worsening. States that she has been having to take her pain medication more frequently. She is experiencing a burning sensation around the incision site. She denies any drainage from the incision. States that she is having mild vaginal bleeding with no odor. States she is having normal bowel movements with no hematochezia or melena. She is breast-feeding currently, she does report increased fullness and tenderness to the breast but denies any redness or irritation. Patient states that her mother noticed that her skin seemed to be becoming more yellow yesterday and worsened today. Patient denies any upper abdominal pain, pain radiation to her back, nausea, or vomiting. She denies any fevers or chills. Denies any itching, headache, blurred vision, double vision, dizziness, or weakness. Patient denies any recent rash, shortness breath, chest pain, diarrhea, constipation, back pain, numbness, tingling, or any other complaints. (Zulma Ibarra) - Related Data Previous Rx's Medication Instructions Recorded HYDROcodone/APAP 5-325MG [[place] 1 tab PO Q4HR PRN #30 tab 07/17/18 5-325] Allergies Allergy/AdvReac Type Severity Reaction Status Date / Time levofloxacin [From Levaquin] Allergy Severe Anaphylaxis Verified 07/22/18 22:37 cephalexin [From Keflex] Allergy Rash/Hives Verified 07/22/18 22:37 clindamycin Allergy Rash/Hives/ Verified 07/22/18 22:37 RED FACE Penicillins Allergy Anaphylaxis Verified 07/22/18 22:37 NSAIDS (Non-Steroidal AdvReac Unknown Verified 07/22/18 22:37 Anti-Inflamma paper tape Allergy rash and Uncoded 07/14/18 15:11 tears skin Review of Systems ROS Other: All systems not noted in ROS Statement are negative. <Zulma Ibarra - Last Filed: 07/23/18 02:51> ROS Other: All systems not noted in ROS Statement are negative. <Edie Garcia P - Last Filed: 07/23/18 06:20> ROS Statement: Those systems with pertinent positive or pertinent negative responses have been documented in the HPI. Past Medical History Past Medical History: Asthma, Diabetes Mellitus, GERD/Reflux, Sleep Apnea/CPAP/ BIPAP Additional Past Medical History / Comment(s): HX DM/SLEEP APNEA PRIOR TO SURGERY , POST GASTRIC BYPASS, UNABLE TO KEEP FOOD DOWN. PRE-MS, NO RX SINCE 08/2015. CURRENT . History of Any Multi-Drug Resistant Organisms: None Reported Past Surgical History: Adenoidectomy, Bariatric Surgery, Section, Tonsillectomy Additional Past Surgical History / Comment(s): 04/13/16: MAYLIN-EN-Y GASTRIC BYPASS. EGD 06/10/16; TWISTED BOWEL PROCEDURE 01/2017. C-S 2008. Past Anesthesia/Blood Transfusion Reactions: No Reported Reaction Additional Past Anesthesia/Blood Transfusion Reaction / Comment(s): no hx blood transfusion Past Psychological History: ADD/ADHD, Anxiety, Depression Smoking Status: Current every day smoker Past Alcohol Use History: None Reported Past Drug Use History: Marijuana - Past Family History Father History Unknown: Yes Family Medical History: No Reported History Mother Family Medical History: No Reported History <Zulma Ibarra - Last Filed: 07/23/18 02:51> General Exam Limitations: no limitations General appearance: alert, in no apparent distress, other (This is a well- developed, well-nourished adult female patient in no acute distress. Vital signs upon presentation are temperature 98.8F, pulse 82, respirations 16, blood pressure 133/63, pulse ox 98% on room air.) Eye exam: Present: normal appearance, PERRL, EOMI. Absent: scleral icterus, conjunctival injection, periorbital swelling ENT exam: Present: normal exam, normal oropharynx, mucous membranes moist Respiratory exam: Present: normal lung sounds bilaterally. Absent: respiratory distress, wheezes, rales, rhonchi, stridor Cardiovascular Exam: Present: regular rate, normal rhythm, normal heart sounds. Absent: systolic murmur, diastolic murmur, rubs, gallop, clicks GI/Abdominal exam: Present: soft, tenderness (Lower abdominal tenderness, over large hematoma), normal bowel sounds, other (Patient has a horizontal suprapubic incision that is well approximated with no erythema or drainage. Well healed.). Absent: distended, guarding, rebound, rigid Back exam: Present: normal inspection. Absent: CVA tenderness (R), CVA tenderness (L) Neurological exam: Present: alert, oriented X3, CN II-XII intact Psychiatric exam: Present: normal affect, normal mood Skin exam: Present: warm, dry, intact, pallor. Absent: normal color, rash <Zulma Ibarra - Last Filed: 07/23/18 02:51> Vital Signs 07/22/18 07/23/18 07/23/18 22:11 00:36 01:44 Temperature 98.8 F 98.0 F Pulse Rate 82 62 64 Respiratory 16 16 16 Rate Blood Pressure 133/63 103/72 111/71 O2 Sat by Pulse 98 99 100 Oximetry Medical Decision Making - Lab Data Result diagrams: 07/22/18 23:23 07/22/18 23:23 - Radiology Data Radiology results: report reviewed, image reviewed <Zulma Ibarra - Last Filed: 07/23/18 02:51> - Lab Data Result diagrams: 07/22/18 23:23 07/22/18 23:23 <Edie Garcia - Last Filed: 07/23/18 06:20> - Medical Decision Making 37-year-old female patient percents into the emergency department today for evaluation of increased lower abdominal pain, burning at incision site, and subjective yellow skin. Physical examination did reveal large area hematoma over the lower abdomen. Abdominal incision was inspected, well approximated, no erythema, drainage, or evidence of infection. Healing well. Upper abdomen was soft and nontender. Labs reviewed and are relatively unremarkable. Patient did have elevated platelet count 456. Bilirubin level was normal, liver enzymes normal. Urinalysis showed moderate amount of blood with rare bacteria and rare mucous, this has been sent for culture. CT abdomen and pelvis was obtained and did show evidence of abdominal wall hematoma as well as evidence of ileus. Uterus is enlarged but empty. I did discuss findings and results with the patient. We did discuss the patient was most likely catheterized during her this could've caused some trauma to the urethra causing irritation, did inform her that there is no evidence of infection. Did relay to her lower abdominal pain is most likely related to ileus. She is instructed to apply ice to the abdominal wall hematoma. She is instructed to take her home pain medication as directed. She does have an appointment with her CHRONOMETER ASSEMBLER on Wednesday, she is urged to keep this appointment. She is instructed to increase fluids and to slowly increase physical activity like walking to stimulate bowel. Return parameters were discussed in detail. She verbalizes understanding and agreed with this plan. (Zulma Ibarra) I was available for consultation in the emergency department. The history and physical exam were done by the midlevel provider. I was consulted for this patient's care. I reviewed the case with the midlevel provider and based on their presentation of the patient, I agree with the assessment, medical decision making and plan of care as documented. (Edie Garcia) - Lab Data Lab Results 07/22/18 07/22/18 07/22/18 Range/Units 22:35 23:23 23:23 WBC 6.8 (3.8-10.6) k/uL RBC 3.16 L (3.80-5.40) m/uL Hgb 10.7 L (11.4-16.0) gm/dL Hct 30.5 L (34.0-46.0) % MCV 96.4 (80.0-100.0) fL MCH 33.8 (25.0-35.0) pg MCHC 35.0 (31.0-37.0) g/dL RDW 13.6 (11.5-15.5) % Plt Count 456 H D (150-450) k/uL Neutrophils % 59 % Lymphocytes % 30 % Monocytes % 7 % Eosinophils % 3 % Basophils % 0 % Neutrophils # 4.0 (1.3-7.7) k/uL Lymphocytes # 2.0 (1.0-4.8) k/uL Monocytes # 0.5 (0-1.0) k/uL Eosinophils # 0.2 (0-0.7) k/uL Basophils # 0.0 (0-0.2) k/uL Sodium 135 L (137-145) mmol/L Potassium 4.4 (3.5-5.1) mmol/L Chloride 105 (98-107) mmol/L Carbon Dioxide 25 (22-30) mmol/L Anion Gap 5 mmol/L BUN 13 (7-17) mg/dL Creatinine 0.46 L (0.52-1.04) mg/dL Est GFR (CKD-EPI)AfAm >90 (>60 ml/min/1.73 sqM) Est GFR (CKD-EPI)NonAf >90 (>60 ml/min/1.73 sqM) Glucose 86 (74-99) mg/dL Calcium 8.5 (8.4-10.2) mg/dL Total Bilirubin 1.3 (0.2-1.3) mg/dL AST 13 L (14-36) U/L ALT 20 (9-52) U/L Alkaline Phosphatase 84 (38-126) U/L Total Protein 5.3 L (6.3-8.2) g/dL Albumin 2.8 L (3.5-5.0) g/dL Urine Color Yellow Urine Appearance Clear (Clear) Urine pH 6.5 (5.0-8.0) Ur Specific [place] 1.021 (1.001-1.035) Urine Protein Negative (Negative) Urine Glucose (UA) Negative (Negative) Urine Ketones Negative (Negative) Urine Blood Moderate H (Negative) Urine Nitrite Negative (Negative) Urine Bilirubin Negative (Negative) Urine Urobilinogen 12.0 (<2.0) mg/dL Ur Leukocyte Esterase Negative (Negative) Urine RBC 2 (0-5) /hpf Urine WBC 2 (0-5) /hpf Ur Squamous Epith Cells 2 (0-4) /hpf Urine Bacteria Rare H (None) /hpf Urine Mucus Rare H (None) /hpf - Radiology Data CT abdomen and pelvis with contrast was obtained. Report was reviewed in its entirety. Impression by Dr. Sheridan shows large lower anterior abdominal wall hematoma the surgery site. Subcutaneous edema over the anterior abdomen. Small subcutaneous fluid collection at the incision site that measures 6 x 4 by to 7 beers consistent with hematoma. Dilated small bowel in the lower abdomen consistent with ileus. Do not see evidence for intraperitoneal hemorrhage. ( Bantle,Zulma M) Disposition Is patient prescribed a controlled substance at d/c from ED?: No Time of Disposition: 01:32 <Zulma Ibarra - Last Filed: 07/23/18 02:51> <Edie Garcia - Last Filed: 07/23/18 06:20> Clinical Impression: Ileus, Pallor, Abdominal wall hematoma Disposition: HOME SELF-CARE Condition: Good Instructions: Ileus (ED), Hematoma (ED) Additional Instructions: Increase fluids. Try to cut down on opiate pain medication. Try to increase walking slowly. Follow-up with your CHRONOMETER ASSEMBLER as you have planned. Return here immediately for any new, worsening, or concerning symptoms Referrals: Nonstaff,Physician [Primary Care Provider] - 1-2 days
[2018-07-23 01:45] VITALS: BP 111/71; PULSE 64
== END 2018-07-23 01:50 | disposition home or self-care (01) ==
LOC: SUPCPDRO 21:46 → EC 21:46
DX: K56.7 Ileus, unspecified (principal); R23.1 Pallor; S30.1XXA Contusion of abdominal wall, initial encounter; G47.30 Sleep apnea, unspecified; F17.200 Nicotine dependence, unspecified, uncomplicated; Z88.1 Allergy status to other antibiotic agents; Z88.0 Allergy status to penicillin; Z88.6 Allergy status to analgesic agent; Z91.048 Other nonmedicinal substance allergy status; Z98.84 Bariatric surgery status; X50.9XXA Other and unspecified overexertion or strenuous movements or postures, initial encounter
CPT/HCPCS: 36415; 80053; 85025; 81001; 87040; 87086; 74177; 99285; 96374; 96375; 96361; J2270; J2405; Q9967